=== PATIENT | female | born 1930 | race Caucasian/White ===

== ENCOUNTER 2019-08-21 10:02 | Day surgery (SDC) | payer MEDICARE ==
[~2019-08-21] VITALS: Ht 160 cm; Wt 74.2 kg
[2019-08-21] MEDS ORDERED: normal saline 1000ml 1,000 ML IV SCH (10:35)
[2019-08-21] MEDS ORDERED: LEVO88TA2 PO (10:53)
[2019-08-21] MEDS ORDERED: LOSA100T57 PO (10:53)
[2019-08-21] MEDS ORDERED: FLEC100T2 PO (10:53)
[2019-08-21] MEDS ORDERED: OMEP40CA13 PO (10:53)
[2019-08-21] MEDS ORDERED: OLOP2.5D5 EACHEYE (10:53)
[2019-08-21] MEDS ORDERED: GABA-530 PO (10:53)
[2019-08-21] MEDS ORDERED: TRAM50TA2 PO (10:53)
[2019-08-21] MEDS ORDERED: METO50TA17 PO (10:53)
[2019-08-21 11:38] LABS: BASOPHILS % (AUTO) 0.3 % (0-1); EOSINOPHILS # (AUTO) 0.3 X10'3 (0-0.9); EOSINOPHILS % (AUTO) 3.2 % (0-6); HEMATOCRIT 47.5 % (35.0-45.0); HEMOGLOBIN 15.9 g/dl (12.0-16.0); LYMPHOCYTES # (AUTO) 1.7 X10'3 (1.1-4.8); LYMPHOCYTES % (AUTO) 20.1 % (21-51); MEAN CORPUSCULAR HEMOGLOBIN 31.9 PG (27.0-31.0); MEAN CORPUSCULAR HGB CONC 33.5 g/dL (33.0-36.5); MEAN CORPUSCULAR VOLUME 95.2 FL (78-98); MEAN PLATELET VOLUME 7.6 FL (7.4-10.4); MONOCYTES # (AUTO) 0.4 X10'3 (0-0.9); MONOCYTES % (AUTO) 5.1 % (2-12); NEUTROPHILS # (AUTO) 5.9 X10'3 (1.8-7.7); NEUTROPHILS % (AUTO) 71.3 % (42-75); PLATELET COUNT 266 X10'3 (140-440); RED BLOOD COUNT 4.99 X10'6 (4.20-5.60); RED CELL DISTRIBUTION WIDTH 14.9 % (11.5-14.5); WHITE BLOOD COUNT 8.3 X10'3 (4.5-11.0)
[2019-08-21 11:48] LABS: ALBUMIN 4.2 G/DL (3.4-5.0); ANION GAP 6 (8-16); BLOOD UREA NITROGEN 22 MG/DL (7-18); CALCIUM 9.4 MG/DL (8.5-10.1); CHLORIDE 103 MMOL/L (99-107); CREATININE 1.05 MG/DL (0.40-0.90); GLUCOSE 87 MG/DL (70-104); MAGNESIUM 1.9 MG/DL (1.5-2.4); POTASSIUM 4.4 MMOL/L (3.5-5.1); SODIUM 138 MMOL/L (135-145); TOTAL CARBON DIOXIDE 28.7 MMOL/L (24-32); eGFR 50 ML/MIN
[2019-08-21] MEDS ORDERED: pneumococcal 23-VAL P-sac vacc 25 mcg/0.5ml vial IMVAC ONE (12:30)
[2019-08-21] MEDS ORDERED: ceFAZolin 1000mg inj ONE (14:58)
[2019-08-21] MEDS ORDERED: LIDOcaine 1% W/epiNEPHrine 1:100,000 20ml vial ONE (14:58)
[2019-08-21] MEDS ORDERED: ceFAZolin 1GM/D5W- ADD-VANTAGE 50 ML IV ONE (14:58)
[2019-08-21] MEDS ORDERED: fentaNYL/PF 50MCG/1 ML 2ML syringe ONE (14:58)
[2019-08-21] MEDS ORDERED: vancomycin 1,000mg inj ONE (14:58)
[2019-08-21] MEDS ORDERED: midazolam 2 mg/2 ml injection ONE ×2 (14:58→15:32)
[2019-08-21 17:09] VITALS: BP 170/72
[2019-08-21 17:30] VITALS: BP 162/62
[2019-08-21 17:45] VITALS: BP 159/65
== END 2019-08-21 18:00 | disposition home or self-care (01) ==
LOC: SSTAY O 10:02
PROVIDERS: ATTEND Internal Medicine Cardiovascular Disease
DX: I49.5 Sick sinus syndrome (principal); Z45.09 Encounter for adjustment and management of other cardiac device; I48.0 Paroxysmal atrial fibrillation; I47.1 Supraventricular tachycardia; I10 Essential (primary) hypertension; E03.9 Hypothyroidism, unspecified; J44.9 Chronic obstructive pulmonary disease, unspecified; M19.90 Unspecified osteoarthritis, unspecified site; K21.9 Gastro-esophageal reflux disease without esophagitis; I87.2 Venous insufficiency (chronic) (peripheral); Z72.89 Other problems related to lifestyle; Z79.891 Long term (current) use of opiate analgesic; Z79.890 Hormone replacement therapy; Z79.899 Other long term (current) drug therapy; Z88.8 Allergy status to other drugs, medicaments and biological substances; Z90.710 Acquired absence of both cervix and uterus; Z90.49 Acquired absence of other specified parts of digestive tract; Z96.659 Presence of unspecified artificial knee joint; Z98.890 Other specified postprocedural states; Z86.73 Personal history of transient ischemic attack (TIA), and cerebral infarction without residual deficits
CPT/HCPCS: 33208; 33286; 36415; 80048; 83735; 85025; 85610; 99152; 99153; C1785; C1894; C1898; J0690; J2250; J3010; J3370; J7030; J7050; A4565; A4620; A6258; A6449